=== PATIENT | male | born 1955 | race Caucasian/White ===

== ENCOUNTER 2019-12-08 10:07 | Outpatient (CLI) | payer OTHER, SELFPAY ==
--- NOTE | ~2019-12-08 | US_ITS ---
EXAMINATION: US carotid duplex BI DATE: 12/08/2019 10:58 INDICATION: Carotid stenosis TECHNIQUE: Grayscale, color Doppler, and pulsed Doppler images of the cervical carotid arteries were obtained. The degree of vessel stenosis is placed in one of the following categories: normal, <50%, 5 0-69%, >=70% but less than near-occlusion, near-occlusion, or total occlusion. Note that percent sten osis relative to normal distal artery lumen diameter is indirectly measured from velocity measurement s as described by Yg, et al. Radiology 2003; [id number]:[id number]. Notes: Normal: Peak systolic velocity <125 centimeters/sec and no plaque <50%. Peak systolic velocity <125 ( EDV <40; ICA/CCA PSV ratio <2.0; used these factors only a tandem lesions or low cardiac output or co ntralateral disease) 50-69 %: PSV 125-230 (EDV 40-100; ratio 2-4) >= 70% but less than near occlusion: PSV greater than 230 (EDV > 100; ratio> 4.0) Near Occlusion: PSV that is variable; markedly narrowed lumen Occlusion: Absent flow on color/spectral Doppler and no lumen on castillo scale. COMPARISON: Ultrasound dated 02/05/2012 FINDINGS: RIGHT: The right common carotid artery (CCA) peak systolic velocity (PSV) is 120 cm/s. The right internal ca rotid artery (ICA) PSV is 165 cm/s. The right ICA end-diastolic velocity (EDV) is 44 cm/s. The right ICA/CCA PSV ratio is 1.4. The external carotid artery (ECA) PSV is 98 cm/s. There is antegrade flow i n the right vertebral artery. LEFT: The left CCA PSV is 119 cm/s. The left ICA PSV is 124 cm/s. The left ICA EDV is 41 cm/s. The left ICA /CCA PSV ratio is 1.0. The ECA PSV is 83 cm/s. There is antegrade flow in the left vertebral artery. IMPRESSION: 1. 50-69% stenosis in the right internal carotid artery by sonographic criteria. 2. Less than 50% stenosis in the left internal carotid artery by sonographic criteria. Reviewed, dictated and finalized at location A. IMPRESSION: 1. 50-69% stenosis in the right internal carotid artery by sonographic criteria . 2. Less than 50% stenosis in the left internal carotid artery by sonographic cr iteria.
== END 2019-12-08 10:08 | disposition home or self-care (01) ==
LOC: CHSIMG 10:11
PROVIDERS: PCP Internal Medicine; Visit Provider Internal Medicine
DX: I65.23 Occlusion and stenosis of bilateral carotid arteries (principal)
CPT/HCPCS: 93880

== ENCOUNTER 2020-06-29 10:02 | Outpatient (CLI) | payer OTHER, SELFPAY ==
[2020-06-29 10:58] LABS: SARS-CoV-2 Ag Positive (Negative)
== END 2020-06-29 10:03 | disposition home or self-care (01) ==
LOC: CHSLAB 10:08
PROVIDERS: PCP Internal Medicine; Visit Provider Internal Medicine
DX: U07.1 COVID-19 (principal)
CPT/HCPCS: 87426

== ENCOUNTER 2020-07-20 10:25 | Outpatient (CLI) | payer OTHER, SELFPAY ==
--- NOTE | ~2020-07-20 | CT_ITS ---
EXAMINATION: CT abdomen pelvis wo con DATE: 07/20/2020 10:46 INDICATION: Left flank pain, left lower quadrant and groin pain. History of kidney stones. TECHNIQUE: Computed tomography (CT) of the abdomen and pelvis was performed without intravenous contr ast. Automated exposure control and iterative reconstruction technique were employed. Exam dose: 375 .38 mGy-cm total exam DLP. COMPARISON: 06/16/[address] abdomen pelvis FINDINGS: There is discoid atelectasis or scarring in the right lower lobe. The lung bases are clear of infiltrate or consolidation. Status post sternotomy. Normal heart size. No pericardial or pleural effusion. Probable approximately 11 mm left hepatic cyst. The liver is otherwise unremarkable. No bile duct or pancreatic duct dilatation. The gallbladder appears unremarkable. No pancreatic mass lesion or calcif ication. Normal splenic size. Normal morphology of the adrenal glands. No right renal mass lesion or right urinary tract calculus or hydroureteronephrosis. There is an approximately 7 x 10.6 x 11.8 mm tall calculus (740 Hounsfield units) of the left uretero pelvic junction with moderately severe left hydronephrosis. There is a 5.6 mm lower pole nonobstructing left renal calculus. The urinary bladder, prostate gland and seminal vesicles are unremarkable. There is atherosclerotic calcification of the abdominal aorta, celiac and superior mesenteric and rig ht renal arteries as well as iliac and femoral arteries. No abdominal aortic aneurysm. No intraperitoneal or retroperitoneal or pelvic mass lesion or adenopathy or ascites. Normal appendix. No bowel obstruction, bowel wall thickening, pneumatosis or intraperitoneal free air. There is likely chronic mild loss of height and anterior wedging at L1 and several lower thoracic pan tebral bodies. Diffuse osteopenia. No suspicious osteolytic or osteoblastic lesions are noted. IMPRESSION: 7 x 10.6 x 11.8 mm obstructing left ureteropelvic junction calculus with moderately nathan re left hydronephrosis 5.60 the lower pole nonobstructing left renal calculus 11 mm left hepatic cyst Reviewed, dictated and finalized at Location A. Reviewed, dictated and finalized at location B. ENTERS IMPRESSION: 7 x 10.6 x 11.8 mm obstructing left ureteropelvic junction calculu s with moderately severe left hydronephrosis 5.60 the lower pole nonobstructing left renal calculus 11 mm left hepatic cyst
== END 2020-07-20 10:26 | disposition home or self-care (01) ==
LOC: CHSIMG 10:28
PROVIDERS: PCP Internal Medicine; Visit Provider Internal Medicine
DX: R10.9 Unspecified abdominal pain (principal); R31.9 Hematuria, unspecified
CPT/HCPCS: 74176

== ENCOUNTER 2020-07-25 08:26 | Outpatient (CLI) | payer OTHER, SELFPAY ==
--- NOTE | 2020-07-25 08:28 | ECG_ITS ---
Measurements Intervals [place] Rate: 78 P: 41 MN: 138 QRS: 26 QRSD: 93 T: 20 QT: 344 QTc: 393 Interpretive Statements SINUS RHYTHM POSSIBLE LEFT ATRIAL ENLARGEMENT INCOMPLETE RIGHT BUNDLE BRANCH BLOCK DELAYED PRECORDIAL R/S TRANSITION BORDERLINE ECG Electronically Signed On 07-25-2020 8:44:08 MILL MACHINIST by Dilshad Mars D.O.
[2020-07-25 09:05] LABS: INR 0.9; Prothrombin Time 12.9 Seconds (11.1-14.7)
[2020-07-25 09:06] LABS: Partial Thromboplastin Time 26.2 SECONDS (22.3-36.8)
== END 2020-07-25 08:27 | disposition home or self-care (01) ==
LOC: ANHSURGERY 08:28
PROVIDERS: Urology; PCP Internal Medicine; Visit Provider Urology
DX: Z01.818 Encounter for other preprocedural examination (principal); E78.00 Pure hypercholesterolemia, unspecified; N20.0 Calculus of kidney
CPT/HCPCS: 36415; 85610; 85730; 87086; 93005

== ENCOUNTER 2020-07-28 02:42 | Day surgery (SDC) | payer OTHER, SELFPAY ==
[2020-07-20 15:40] VITALS: BMI 27.7
--- NOTE | 2020-07-24 07:59 | PM.HPGS ---
History of Present Illness History of Present Illness Consent: Risks, benefits, and alternatives have been discussed and questions answered. Patient agrees to proceed with procedure. Chief complaint: Left Kidney Stone Narrative: Timmy Ledbetter is a 64 year old male who recent presented to the emergency room in [facility] with left flank pain. Imaging revealed a calcified left renal pelvic/ proximal ureteral stone. Was initially scheduled for ESWL but that had to be canceled because he had a ongoing anticoagulation therapy. Now presents for definitive stone including cystoscopy with left stent placement and left ESWL. Review of Systems Cardiovascular: Cardiovascular: Denies chest pain, Denies lightheadedness, Denies palpitations and Denies dyspnea Respiratory: Respiratory: Denies dyspnea Gastrointestinal: Gastrointestinal: Denies diarrhea, Denies nausea and Denies vomiting Genitourinary: Genitourinary: Denies hematuria and Denies dysuria Endocrine: Endocrine: Denies palpitations [facility] Social History Social History Smoking status: Never smoker Spiritual care concerns: No Meds Home Medications and Allergies Home Medications Medication Instructions Recorded Confirmed Type allopurinol 100 mg PO DAILY 07/20/20 07/20/20 History aspirin [Adult Low Dose Aspirin] 81 mg PO DAILY 07/20/20 07/20/20 History ezetimibe 10 mg PO DAILY 07/20/20 07/20/20 History folic acid 1 mg PO DAILY 07/20/20 07/20/20 History lisinopril 5 mg PO DAILY 07/20/20 07/20/20 History metoprolol tartrate 50 mg PO DAILY 07/20/20 07/20/20 History omeprazole 40 mg PO DAILY 07/20/20 07/20/20 History ticagrelor [Brilinta] 90 mg PO BID 07/20/20 07/20/20 History Allergies Allergy/AdvReac Type Severity Reaction Status Date / Time No Known Allergies Allergy Unverified 07/20/20 14:56 Exam Const: General: no acute distress Resp: Effort & Inspection: normal respiratory effort GI: Inspection: non-distended GI Palp: No abdominal tenderness and No Guarding due to palpation present (GI) Auscultation: normal bowel sounds Assessment and Plan Assessment and plan (1) Left renal stone: Code(s): N20.0 - Calculus of kidney Status: Acute Assessment and Plan: Left ESWL, possible cystoscopy with left ureteral stent placement
--- NOTE | 2020-07-24 12:58 | PC.NURSE ---
PT STATES NO CHANGE IN HEALTH HX SINCE LAST INTERVIEW 07/20/20. GIVEN NEW DATE AND TIME
--- NOTE | 2020-07-27 07:27 | PM.HPGS ---
History of Present Illness History of Present Illness Consent: Risks, benefits, and alternatives have been discussed and questions answered. Patient agrees to proceed with procedure. Chief complaint: Left Kidney Stone Narrative: Timmy Ledbetter is a 64 year old male Recently underwent evaluation for hematuria. CT scan of the abdomen and pelvis revealed multiple renal and ureteral calculi. Specifically he has multiple small stones right kidney, an obstructing 6-7 mm right mid ureteral stone and a 5 mm left renal pelvic stone. Review of Systems Cardiovascular: Cardiovascular: Denies chest pain, Denies lightheadedness, Denies palpitations and Denies dyspnea Respiratory: Respiratory: Denies dyspnea Gastrointestinal: Gastrointestinal: Denies diarrhea, Denies nausea and Denies vomiting Genitourinary: Genitourinary: Denies hematuria and Denies dysuria Endocrine: Endocrine: Denies palpitations [facility] Social History Social History Smoking status: Never smoker Spiritual care concerns: No Meds Home Medications and Allergies Home Medications Medication Instructions Recorded Confirmed Type allopurinol 100 mg PO DAILY 07/20/20 07/24/20 History aspirin [Adult Low Dose Aspirin] 81 mg PO DAILY 07/20/20 07/24/20 History ezetimibe 10 mg PO DAILY 07/20/20 07/24/20 History folic acid 1 mg PO DAILY 07/20/20 07/24/20 History lisinopril 5 mg PO DAILY 07/20/20 07/24/20 History metoprolol tartrate 50 mg PO DAILY 07/20/20 07/24/20 History omeprazole 40 mg PO DAILY 07/20/20 07/24/20 History ticagrelor [Brilinta] 90 mg PO BID 07/20/20 07/24/20 History cyanocobalamin (vitamin B-12) 100 mcg PO DAILY 07/24/20 07/24/20 History hydrocodone-acetaminophen 0.5 tablet PO Q6H PRN 07/24/20 07/24/20 History thiamine HCl (vitamin B1) 100 mg PO DAILY 07/24/20 07/24/20 History Allergies Allergy/AdvReac Type Severity Reaction Status Date / Time No Known Allergies Allergy Unverified 07/24/20 12:56 Exam Const: General: no acute distress Resp: Effort & Inspection: normal respiratory effort GI: Inspection: non-distended GI Palp: No abdominal tenderness and No Guarding due to palpation present (GI) Auscultation: normal bowel sounds Assessment and Plan Assessment and plan (1) Bilateral renal stones: Code(s): N20.0 - Calculus of kidney Status: Acute (2) Right ureteral stone: Code(s): N20.1 - Calculus of ureter Status: Acute Assessment and Plan: Cystoscopy, right ureteral stent placement and right ESWL. Left ureteroscopy with laser lithotripsy and stone extraction, possible left ureteral stent placement
--- NOTE | ~2020-07-28 | XR_ITS ---
EXAMINATION: XR abdomen/kub 1V INDICATION: Left flank pain TECHNIQUE: Supine views of the abdomen were obtained on 2 radiographs. COMPARISON: CT, 07/20/2020 FINDINGS: A 12 mm stone projects at the left ureteropelvic junction. There is a 7 mm stone of the lef t kidney lower pole. No stones are identified in the right kidney, the expected location of the right ureter, or within the bladder. Pelvic phleboliths are noted. Changes in the left pelvis are likely r elated to inguinal hernia repair. There is mild osteoarthritis of the hips. The bowel gas pattern is normal. IMPRESSION: 1. Stones at the left ureteropelvic junction and in the left kidney lower pole. Reviewed, dictated and finalized at location A. H ASSEMBLY INSPECTOR
[2020-07-28 06:48] VITALS: BP 147/94; PULSE 91; RESP 16; TEMP 36.8; O2SAT 97
[2020-07-28] MEDS: LACTATED RINGERS 1,000 ML 30 ML IV CONT ×2 (07:41→09:24)
--- NOTE | 2020-07-28 07:59 | WPDANESEPPF ---
Anes - Initial Pre Proc Eval Procedure: Operation Date: 07/21/20 08:30 Proposed Procedures p Left Extracorporeal Shock Wave Lithotripsy - Az Tanner MD s Cystoscopy, Left Stent Placement - Az Tanner MD Operation Date: 07/28/20 08:30 Proposed Procedures p Left Extracorporeal Shock Wave Lithotripsy,Cystoscopy, Left Stent Placement - Ori Umanzor MD Date/Time: 07/28/20 07:59 Surgeon: Ori Umanzor MD Pre Op Diagnosis: Left Kidney Stone Patient Data Age: 64 Gender: M Height: 6 ft 1 in Weight: 96 kg Last Vital Signs Temp 36.8 C 07/28/20 06:48 Pulse 91 07/28/20 06:48 Resp 16 07/28/20 06:48 BP 147/94 H 07/28/20 06:48 Pulse Ox 97 07/28/20 06:48 Allergies Allergy/AdvReac Type Severity Reaction Status Date / Time No Known Allergies Allergy Unverified 07/24/20 12:56 Home Medications Medication Instructions Recorded Confirmed Type allopurinol 100 mg PO DAILY 07/20/20 07/28/20 History aspirin [Adult Low Dose Aspirin] 81 mg PO DAILY 07/20/20 07/28/20 History ezetimibe 10 mg PO DAILY 07/20/20 07/28/20 History folic acid 1 mg PO DAILY 07/20/20 07/28/20 History lisinopril 5 mg PO DAILY 07/20/20 07/28/20 History metoprolol tartrate 50 mg PO DAILY 07/20/20 07/28/20 History omeprazole 40 mg PO DAILY 07/20/20 07/28/20 History ticagrelor [Brilinta] 90 mg PO BID 07/20/20 07/28/20 History cyanocobalamin (vitamin B-12) 100 mcg PO DAILY 07/24/20 07/28/20 History hydrocodone-acetaminophen 0.5 tablet PO Q6H PRN 07/24/20 07/24/20 History thiamine HCl (vitamin B1) 100 mg PO DAILY 07/24/20 07/28/20 History Patient hx anesthesia problems: none Family hx anesthesia problems: none PMFSH Past Medical History Medical History (Updated 07/28/20 @ 07:59 by [place] Gaspar MD) CAD (coronary artery disease) Surgical History Surgical History (Updated 07/28/20 @ 07:59 by Montana Gaspar MD) History of coronary artery stent placement Hx of CABG Social History Social History Smoking status: Never smoker Living arrangements: with family Spiritual care concerns: No Anes - Eval Final PreProcedure Day of Procedure 07/28/20 07:59 Patient weight: overweight Heart: regular rate and rhythm Lungs: clear to auscultation Airway: Mallampati scale class II and special considerations poor opening Neurological: alert and oriented Last oral intake: >/= 8 hours ASA classification: III Emergent: no Anesthetic plan: proceed Anesthesia type and monitoring: general LMA and standard monitoring Informed Consent: The patient's anesthetic plan and its attendant risks and benefits were discussed with the patient/family/POA. Questions were solicited and answers provided to the satisfaction of the patient/family/POA.
--- NOTE | 2020-07-28 08:26 | WPDHPUPDATE1 ---
History and Physical Update Update Date/Time: 07/28/20 08:26 History and Physical has been reviewed, including an updated exam of the patient. There are NO changes in the patient's condition. Risks, benefits, and alternatives have been discussed and questions answered. Patient agrees to proceed with procedure.
[2020-07-28] MEDS: ceFAZolin 2 GM/D5W 50 ML 2 GM/50 ML BAG IVPB (08:41)
[2020-07-28 09:24] VITALS: BP 118/79; PULSE 71; RESP 14; TEMP 36.7; O2SAT 98
--- NOTE | 2020-07-28 09:24 | PM.PROC ---
Procedure Note - Detailed Date of procedure: 07/28/20 Pre-op diagnosis: Left Kidney Stone Post-op diagnosis: same Procedure performed: Left ESWL Description of procedure: Prior to procedure we discussed left ureteral stent placement. Due to prior adverse experience with stent and marginal size of this stone, he opted against stent placement. The patient was brought to the operative suite where he was placed in the supine position on the Dornier lithotripsy table. The focal point of the lithotripter was placed at a 6x9mm left UPJ calculus. A total of 2500 shocks were delivered at a power setting of 4. We did not treat the smaller stone in his left lower pole. There appeared to be good fragmentation of the stone. The patient tolerated the procedure well and was taken to the recovery room in good condition. Anesthesia: GLMA Surgeon: Ori Umanzor MD Estimated blood loss (mL): 0 Drains: No Packing: No Pathology: none sent Complications: No immediate complications Condition: stable Disposition: PACU
[2020-07-28 09:40] VITALS: BP 149/96; PULSE 73; RESP 14; O2SAT 100
[2020-07-28 09:50] VITALS: BP 143/97; PULSE 76; RESP 14; O2SAT 99
[2020-07-28 09:55] VITALS: BP 165/104; PULSE 70; RESP 14
[2020-07-28 10:30] VITALS: BP 134/96; PULSE 70; RESP 14
== END 2020-07-28 11:04 | disposition home or self-care (01) ==
PROVIDERS: PCP Internal Medicine; Visit Provider Urology
PROC: (CPT 50590; principal; 2020-07-28 08:30)
DX: N20.2 Calculus of kidney with calculus of ureter (principal); Z79.82 Long term (current) use of aspirin
CPT/HCPCS: 50590; 36415; 74018; 85610; 85730; 87086; 93005; A9270; J0690; J2250; J2405; J2704; J3010; J7120

== ENCOUNTER 2020-08-03 11:43 | Outpatient (CLI) | payer OTHER, SELFPAY ==
--- NOTE | ~2020-08-03 | XR_ITS ---
EXAMINATION: XR abdomen/kub 1V INDICATION: Calculus of ureter TECHNIQUE: Supine views of the abdomen were obtained on 2 radiographs. COMPARISON: 07/28/2020 FINDINGS: A previously described stone at the left ureteropelvic junction is no longer identified. Th ere are questionable stone fragments in the distal left ureter. There appears to be interval lithotri psy of the previously described left kidney stone with small stone fragments of the lower pole. The b owel gas pattern is normal. The lung bases are clear. Again noted are changes in the left pelvis like ly related to inguinal hernia repair. There is mild osteoarthritis of the hips. IMPRESSION: 1. Interval treatment of the previously described left-sided kidney stones with possible stone fragme nts in the distal left ureter and in the left kidney lower pole. Reviewed, dictated and finalized at location A. CREW MEMBER IMPRESSION: 1. Interval treatment of the previously described left-sided kidney stones with possible stone fragments in the distal left ureter and in the left kidney lowe r pole.
== END 2020-08-03 11:44 | disposition home or self-care (01) ==
PROVIDERS: PCP Internal Medicine; Visit Provider Urology
DX: N20.1 Calculus of ureter (principal)
CPT/HCPCS: 74018

== ENCOUNTER 2020-08-04 08:08 | Outpatient (CLI) | payer OTHER, SELFPAY ==
--- NOTE | ~2020-08-04 | XR_ITS ---
EXAMINATION: XR abdomen/kub 1V EXAM DATE: 08/04/2020 08:22 INDICATION: Calculus of ureter, F/U after lithotripsy on the left. TECHNIQUE: Frontal projection of the upper abdomen, frontal projection lower abdomen/pelvis for inter pretation. Comparison is made to prior examination from 08/03/2020. FINDINGS: There is identification of one of the previously seen possible distal left ureteral stone f ragments, indicated. This measures about 3 or 4 mm. Can't identify any definite calcifications over r enal contours. Pelvic surgical clip. Probable left inguinal hernia repair. Mild to moderate symmetric bilateral hip primary osteoarthritis. Expected amount of colonic stool and gas. Mild to moderate tho racolumbar spondylosis. IMPRESSION: 1. Calcification, possible distal left ureteral stone indicated. Reviewed, dictated and finalized at location A. ILIZER SUPERVISOR
== END 2020-08-04 08:09 | disposition home or self-care (01) ==
PROVIDERS: PCP Internal Medicine; Visit Provider Urology
DX: N20.1 Calculus of ureter (principal)
CPT/HCPCS: 74018

== ENCOUNTER 2020-09-27 10:01 | Outpatient (CLI) | payer OTHER, SELFPAY ==
--- NOTE | ~2020-09-27 | XR_ITS ---
EXAMINATION: XR abdomen/kub 1V EXAM DATE: 09/27/2020 10:25 INDICATION: Left flank pain. History of kidney stones. TECHNIQUE: Frontal projection of the upper abdomen, frontal projection lower abdomen/pelvis for inter pretation. Comparison is made to prior examination from 08/04/2020. FINDINGS: There is expected amount of colonic stool and gas. No small bowel dilation, nonobstructiv e bowel gas pattern. Right pelvic phlebolith. There are no suspicious calcifications identified. T here is no organomegaly suspected. There are mild bony degenerative changes. Several left inguinal s urgical clips. IMPRESSION: No suspicious calcifications identified. Reviewed, dictated and finalized at location A.
== END 2020-09-27 10:02 | disposition home or self-care (01) ==
PROVIDERS: PCP Internal Medicine; Visit Provider Urology
DX: N20.0 Calculus of kidney (principal)
CPT/HCPCS: 74018

== ENCOUNTER 2021-03-13 07:43 | Outpatient (CLI) | payer MEDICARE, SELFPAY ==
--- NOTE | ~2021-03-13 | US_ITS ---
EXAMINATION: US carotid duplex BI EXAM DATE: 03/13/2021 08:19 INDICATION: Carotid Stenosis . TECHNIQUE: Grayscale, color and pulsed Doppler images of the cervical carotid arteries were obtained . The degree of vessel stenosis is placed in one of the following categories: normal, <50% stenosis, 50-69% stenosis, >=70% stenosis but less than near-occlusion, near-occlusion, or occlusion. Note that percent stenosis relative to normal distal artery lumen diameter is indirectly measured from velocit y measurements as described by Yg, et al. Radiology 2003; [id number]:[id number]. Comparison is made to prior examination from 12/08/2019. FINDINGS: RIGHT SIDE: Right common carotid artery peak systolic velocity (PSV in cm/s): 112 Right bulb/internal carotid artery peak systolic velocity (PSV in cm/s): 155 Right internal carotid artery end diastolic velocity (EDV in cm/s): 148 Right ICA/CCA peak systolic ratio: 1.4 Right external carotid artery peak systolic velocity (PSV in cm/s): 122 Right vertebral artery antegrade flow: yes There is moderate right carotid bulb arterial sclerosis with mildly elevated velocity corresponding t o 50-69% stenosis. LEFT SIDE: Left common carotid artery peak systolic velocity (PSV in cm/s): 147 Left bulb/internal carotid artery peak systolic velocity (PSV in cm/s): 201 Left internal carotid artery end diastolic velocity (EDV in cm/s): 58 Left ICA/CCA peak systolic ratio: 1.4 Left external carotid artery peak systolic velocity (PSV in cm/s): 142 Left vertebral artery antegrade flow: yes There is mild to moderate amount of left carotid bulb arterial sclerosis with elevated ICA velocity, visually less than 50% stenosis. IMPRESSION: 1. 50-69% stenosis right internal carotid artery. 2. Less than 50 percent stenosis in the left internal carotid artery. Reviewed, dictated and finalized at location D.
== END 2021-03-13 07:44 | disposition home or self-care (01) ==
LOC: CHSIMG 07:49
PROVIDERS: PCP Internal Medicine; Visit Provider Internal Medicine
DX: I65.23 Occlusion and stenosis of bilateral carotid arteries (principal)
CPT/HCPCS: 93880

== ENCOUNTER 2021-04-03 14:08 | Outpatient (CLI) | payer MEDICARE, SELFPAY ==
[2021-04-03 14:25] LABS: Basophils Absolute Auto 0.04 K/mm3 (0.00-0.10); Basophils Percent Auto 0.5 % (0.0-1.0); Eosinophils Absolute Auto 0.09 K/mm3 (0.02-0.50); Eosinophils Percent Auto 1.1 % (1.0-6.0); Hematocrit 44.6 % (37.0-46.0); Hemoglobin 15.1 g/dL (12.4-15.3); Immature Granulocyte Absolute 0.02 K/mm3 (0.00-0.00); Immature Granulocyte Percent A 0.2 % (0.0-0.0); Lymphocytes Absolute Auto 1.73 K/mm3 (1.10-4.50); Lymphocytes Percent Auto 21.5 % (18.0-42.0); Mean Corpuscular HGB Conc 33.9 g/dL (32.0-36.0); Mean Corpuscular Hemoglobin 29.5 pg (27.0-31.0); Mean Corpuscular Volume 87.3 fL (78.0-102.0); Mean Platelet Volume 9.4 fl (8.7-11.0); Monocytes Absolute Auto 0.64 K/mm3 (0.10-0.90); Monocytes Percent Auto 7.9 % (2.0-11.0); Neutrophils Absolute Auto 5.5 K/mm3 (1.7-7.2); Neutrophils Percent Auto 68.8 % (50.0-70.0); Platelet Count Result 267 K/mm3 (150-420); Red Blood Count 5.11 M/mm3 (4.70-6.10); Red Cell Distribution Width 12.8 % (11.6-14.4); White Blood Count 8.1 K/mm3 (4.8-10.8)
[2021-04-03 15:03] LABS: Alanine Aminotransferase 45 U/L (16-63); Albumin Level 4.2 g/dL (3.4-5.0); Alkaline Phosphatase 75 U/L (46-116); Anion Gap 10 mmol/L (8-16); Aspartate Amino Transferase 26 U/L (15-37); Bilirubin,Total 0.3 mg/dL (0.00-1.00); Blood Urea Nitrogen 23 mg/dL (7-18); Calcium 9.1 mg/dL (8.5-10.1); Carbon Dioxide 26 mmol/L (21-32); Chloride 103 mmol/L (98-108); Creatine Kinase 268 U/L (39-308); Estimated Glomerular Filt Rate > 60; Glucose 95 mg/dL (70-99); NT Pro B Type Natriuretic Pept 65 pg/mL (0-125); Osmolality Calculated 291 mOsm/kg (285-295); Potassium 4.1 mmol/L (3.5-5.1); Sodium 139 mmol/L (136-145); Total Protein 7.5 g/dL (6.4-8.2)
== END 2021-04-03 14:09 | disposition home or self-care (01) ==
LOC: CHSLAB 14:12
PROVIDERS: PCP Internal Medicine; Visit Provider Internal Medicine
DX: I25.10 Atherosclerotic heart disease of native coronary artery without angina pectoris (principal); R42 Dizziness and giddiness; R06.00 Dyspnea, unspecified
CPT/HCPCS: 36415; 80053; 82550; 82553; 83880; 84484; 85025

== ENCOUNTER → 2021-04-27 08:36 | Outpatient (CLI) | payer MEDICARE, SELFPAY ==
--- NOTE | ~2021-04-27 | CT_ITS ---
EXAMINATION: CT abdomen pelvis wo con DATE: 04/27/2021 08:58 INDICATION: Kidney calculus. Patient states he passed a stone. Hypertension. TECHNIQUE: Computed tomography (CT) of the abdomen and pelvis was performed without intravenous contr ast. Automated exposure control and iterative reconstruction technique were employed. Exam dose: 786 .64 mGy-cm total exam DLP. COMPARISON: 04/27/2021 KUB 09/27/2020 KUB 07/20/2020 CT abdomen pelvis noncontrast examination FINDINGS: The lung bases are clear of infiltrate or consolidation. Status post sternotomy. Normal heart size. No pericardial or pleural effusion. Stable left hepatic 11 mm cyst. The liver is otherwise unremarkable. The gallbladder appears normal. No bile duct or pancreatic duct dilatation. No pancreatic mass lesion or calcification. Normal spleni c size. Normal morphology of the adrenal glands. Nonobstructing 2.5 mm, 5.6 mm and 4 mm lower pole left renal calculi. No right renal calculus. No left or right ureteral calculus or hydroureteronephrosis. There is atherosclerotic calcification but normal caliber of the abdominal aorta. There is prominent calcification at the origin of the right renal artery. Calcification of the iliac and femoral arterie s. No intraperitoneal or retroperitoneal or pelvic mass lesion or adenopathy or ascites. Normal appendix. Mild colonic diverticulosis; no CT evidence of diverticulitis. No bowel obstruction, bowel wall thick ening, pneumatosis or intraperitoneal free air. Chronic mild compression fracture deformity of L1. IMPRESSION: Nonobstructing left nephrolithiasis No ureteral calculus or hydroureteronephrosis Reviewed, dictated and finalized at Location A. Reviewed, dictated and finalized at location A.
--- NOTE | ~2021-04-27 | XR_ITS ---
EXAMINATION: XR abdomen/kub 1V DATE: 04/27/2021 08:58 INDICATION: Calculus of kidney. TECHNIQUE: A supine view of the abdomen on 2 radiographs was obtained. COMPARISON: CT abdomen and pelvis 04/27/2021 FINDINGS: There are no dilated loops of bowel. The kidneys are obscured by bowel. There are phlebolit hs in right pelvis. Surgical clips overlie the pelvis. Median sternotomy wires and mediastinal surgic al clips are seen, likely from prior coronary artery bypass grafting. IMPRESSION: 1. No visible urolithiasis. Reviewed, dictated and finalized at location A. IMPRESSION: 1. No visible urolithiasis.
== END ==
PROVIDERS: PCP Internal Medicine; Visit Provider Nurse Practitioner Adult Health
DX: N20.0 Calculus of kidney (principal)
CPT/HCPCS: 74018; 74176

== ENCOUNTER 2021-09-03 13:58 | Outpatient (CLI) | payer MEDICARE, SELFPAY ==
--- NOTE | ~2021-09-03 | XR_ITS ---
EXAMINATION: XR chest 2V 09/03/2021 14:24 INDICATION: Chest pain and discomfort PROCEDURE: Two-view chest COMPARISON: 03/07/2015 FINDINGS: The lungs are clear. The cardiomediastinal silhouette is within normal limits. There are no pleural effusions. There is no pneumothorax suspected. Status post median sternotomy for CABG. IMPRESSION: 1: NO ACUTE CARDIOPULMONARY DISEASE. Reviewed, dictated and finalized at location B. IAC CATH TECHNICIAN
[2021-09-03 14:20] LABS: Basophils Absolute Auto 0.03 K/mm3 (0.00-0.10); Basophils Percent Auto 0.4 % (0.0-1.0); Eosinophils Percent Auto 1.4 % (1.0-6.0); Hematocrit 44.4 % (37.0-46.0); Hemoglobin 14.7 g/dL (12.4-15.3); Immature Granulocyte Absolute 0.02 K/mm3 (0.00-0.00); Immature Granulocyte Percent A 0.3 % (0.0-0.0); Lymphocytes Percent Auto 21.7 % (18.0-42.0); Mean Corpuscular HGB Conc 33.1 g/dL (32.0-36.0); Mean Corpuscular Hemoglobin 28.8 pg (27.0-31.0); Mean Corpuscular Volume 87.1 fL (78.0-102.0); Mean Platelet Volume 10.2 fl (8.7-11.0); Monocytes Absolute Auto 0.63 K/mm3 (0.10-0.90); Monocytes Percent Auto 8.5 % (2.0-11.0); Neutrophils Percent Auto 67.7 % (50.0-70.0); Platelet Count Result 239 K/mm3 (150-420); Red Cell Distribution Width 13.2 % (11.6-14.4); White Blood Count 7.4 K/mm3 (4.8-10.8)
[2021-09-03 14:47] LABS: Alanine Aminotransferase 30 U/L (16-63); Albumin Level 3.9 g/dL (3.4-5.0); Alkaline Phosphatase 69 U/L (46-116); Anion Gap 8 mmol/L (8-16); Aspartate Amino Transferase 18 U/L (15-37); Bilirubin,Total 0.4 mg/dL (0.00-1.00); Blood Urea Nitrogen 22 mg/dL (7-18); Calcium 9.1 mg/dL (8.5-10.1); Carbon Dioxide 27 mmol/L (21-32); Chloride 102 mmol/L (98-108); Creatine Kinase 134 U/L (39-308); Estimated Glomerular Filt Rate > 60; Glucose 93 mg/dL (70-99); Osmolality Calculated 287 mOsm/kg (285-295); Potassium 4.1 mmol/L (3.5-5.1); Sodium 137 mmol/L (136-145); Total Protein 7.4 g/dL (6.4-8.2)
[2021-09-03 15:27] LABS: Erythrocyte Sedimentation Rate 7 mm/hr (0-20)
== END 2021-09-03 13:59 | disposition home or self-care (01) ==
LOC: CHSLAB 14:02
PROVIDERS: PCP Internal Medicine; Visit Provider Internal Medicine
DX: R07.9 Chest pain, unspecified (principal)
CPT/HCPCS: 36415; 71046; 80053; 82550; 82553; 84484; 85025; 85652

== ENCOUNTER 2021-12-13 00:52 | Day surgery (SDC) | payer MEDICARE, SELFPAY ==
[2021-11-21 10:19] VITALS: BMI 28.3
--- NOTE | 2021-12-06 12:25 | PC.NURSE ---
message left for patient regarding date, times and plavix.
[2021-12-13 07:40] VITALS: BP 133/94; PULSE 72; RESP 18; TEMP 36.6; O2SAT 99
[2021-12-13] MEDS: LACTATED RINGERS 1,000 ML 150 ML IV CONT (07:42)
--- NOTE | 2021-12-13 08:19 | PM.IMHP ---
H&P: HPI History of Present Illness Date/Time: 12/13/21 08:19 Chief Complaint: epigastric pain, reflux, history of colon polyps Narrative: this is a 66-year-old man who presents for EGD and colonoscopy. His last colonoscopy was 5 years ago and polyps were removed at that time. He denies any family history of colon cancer and denies any melena or hematochezia. He also has a longstanding history of acid reflux. He recently had some epigastric pain but it turned out this was most likely due to a stent in his heart being occluded. This was ballooned back open several months ago. He still takes a PPI daily. Review of Systems Review of Systems: All systems reviewed & are unremarkable except as noted in HPI and below Constitutional: Constitutional: Denies chills, Denies fever(s), Denies headache(s) and Denies weight loss Eyes: Eyes: Denies change in vision ENT: Denies dizziness, Denies headache(s), Denies neck mass and Denies throat swelling Cardiovascular: Cardiovascular: Denies chest pain, Denies lightheadedness and Denies dyspnea Respiratory: Respiratory: Denies cough, Denies dyspnea and Denies wheezing Gastrointestinal: Gastrointestinal: Denies abdominal pain, Denies change in bowel habits, Reports heartburn, Denies nausea and Denies vomiting Genitourinary: Genitourinary: Denies hematuria and Denies dysuria Musculoskeletal: Musculoskeletal: Reports as per HPI Integumentary/Breasts: Skin/Breast: Reports as per HPI Neurologic: Denies dizziness and Denies headache(s) Allergic/Immunologic: Allergic/Immunologic: Denies throat swelling and Denies wheezing [facility] Past Medical History Medical History CAD (coronary artery disease) Surgical History Surgical History History of coronary artery stent placement Hx of CABG Family History Family History Father Coronary artery disease Sibling Hyperlipidemia Sibling Hypertension Grandparent Hypertension Cancer Social History Social History Smoking status: Never smoker Alcohol intake: current Drinks per week: 5 Substance use: never Substance use type: does not use Living arrangements: with family Spiritual care concerns: No Meds Home Medications and Allergies Home Medications Medication Instructions Recorded Confirmed Type allopurinol 100 mg tablet 100 mg PO DAILY 07/20/20 11/21/21 History aspirin 81 mg tablet 81 mg PO DAILY 07/20/20 11/21/21 History metoprolol tartrate 50 mg tablet 50 mg PO DAILY 07/20/20 11/21/21 History cyanocobalamin (vitamin B-12) 100 100 mcg PO DAILY 07/24/20 11/21/21 History mcg tablet alirocumab 75 mg/mL subcutaneous 75 mg subcut [id number] 10/02/21 11/21/21 History syringe lisinopril 30 mg tablet 30 mg PO DAILY 10/02/21 11/21/21 History nitroglycerin 0.4 mg sublingual 0.4 mg sublingual Q5M PRN Chest 10/02/21 11/21/21 History tablet Pain pantoprazole 40 mg tablet,delayed 40 mg PO BID 10/02/21 11/21/21 History release amlodipine 10 mg tablet 10 mg PO DAILY 11/21/21 11/21/21 History clopidogrel 75 mg tablet 75 mg PO DAILY 11/21/21 11/21/21 History folic acid 1 mg tablet 1 mg PO DAILY 11/21/21 11/21/21 History Allergies Allergy/AdvReac Type Severity Reaction Status Date / Time isosorbide Allergy Severe dizziness, Verified 12/13/21 07:38 giddiness [id number] Reductase Allergy Intermediate muscle Verified 12/13/21 07:38 Inhibitor weakness Vital Signs Vital Signs - 24 hr 12/13/21 07:40 Temperature 36.6 C Pulse Rate 72 Respiratory Rate 18 Blood Pressure 133/94 H Pulse Oximetry 99 Oxygen Delivery Room Air Exam Const: General: no acute distress and alert Orientation/consciousness: patient oriented x3 HENMT: Head: normocephalic and atraumatic
--- NOTE | 2021-12-13 08:28 | WPDANESEPPF ---
Anes - Initial Pre Proc Eval Procedure: Operation Date: 12/13/21 08:30 Proposed Procedures p Esophagogastroduodenoscopy & Screening Colonoscopy - Adam Coppola DO Date/Time: 12/13/21 08:28 Surgeon: Adam Coppola DO Pre Op Diagnosis: epigastric pain, hx of polyps Patient Data Age: 66 Gender: M Height: 1.85 m Weight: 95.4 kg Last Vital Signs Temp 97.8 F 12/13/21 07:40 Pulse 72 12/13/21 07:40 Resp 18 12/13/21 07:40 BP 133/94 H 12/13/21 07:40 Pulse Ox 99 12/13/21 07:40 O2 Del Method Room Air 12/13/21 07:40 Allergies Allergy/AdvReac Type Severity Reaction Status Date / Time isosorbide Allergy Severe dizziness, Verified 12/13/21 07:38 giddiness [id number] Reductase Allergy Intermediate muscle Verified 12/13/21 07:38 Inhibitor weakness Home Medications Medication Instructions Recorded Confirmed Type allopurinol 100 mg tablet 100 mg PO DAILY 07/20/20 11/21/21 History aspirin 81 mg tablet 81 mg PO DAILY 07/20/20 11/21/21 History metoprolol tartrate 50 mg tablet 50 mg PO DAILY 07/20/20 11/21/21 History cyanocobalamin (vitamin B-12) 100 100 mcg PO DAILY 07/24/20 11/21/21 History mcg tablet alirocumab 75 mg/mL subcutaneous 75 mg subcut [id number] 10/02/21 11/21/21 History syringe lisinopril 30 mg tablet 30 mg PO DAILY 10/02/21 11/21/21 History nitroglycerin 0.4 mg sublingual 0.4 mg sublingual Q5M PRN Chest 10/02/21 11/21/21 History tablet Pain pantoprazole 40 mg tablet,delayed 40 mg PO BID 10/02/21 11/21/21 History release amlodipine 10 mg tablet 10 mg PO DAILY 11/21/21 11/21/21 History clopidogrel 75 mg tablet 75 mg PO DAILY 11/21/21 11/21/21 History folic acid 1 mg tablet 1 mg PO DAILY 11/21/21 11/21/21 History Patient hx anesthesia problems: none Family hx anesthesia problems: none Results Review: All pre-operative results and documents have been reviewed as part of the pre-operative evaluation. [facility] Past Medical History Medical History CAD (coronary artery disease) Surgical History Surgical History History of coronary artery stent placement Hx of CABG Family History Family History Father Coronary artery disease Sibling Hyperlipidemia Sibling Hypertension Grandparent Hypertension Cancer Social History Social History Smoking status: Never smoker Alcohol intake: current Drinks per week: 5 Substance use: never Substance use type: does not use Living arrangements: with family Spiritual care concerns: No Anes - Eval Final PreProcedure Day of Procedure 12/13/21 08:28 Patient weight: overweight Heart: regular rate and rhythm Lungs: clear to auscultation Airway: Mallampati scale class II Neurological: alert and oriented Last oral intake: >/= 8 hours ASA classification: III Emergent: no Anesthetic plan: proceed Anesthesia type and monitoring: general GIVS and standard monitoring Results Review: All pre-operative results and documents have been reviewed as part of the pre-operative evaluation. Informed Consent: The patient's anesthetic plan and its attendant risks and benefits were discussed with the patient/family/POA. Questions were solicited and answers provided to the satisfaction of the patient/family/POA.
[2021-12-13] MEDS: BENZOCAINE (*SP) 60 ML SPRAY CAN (HURRICAINE) 1 SPRAY MUCOUS MEM (08:34)
--- NOTE | 2021-12-13 09:03 | SUR.OPER ---
EGD START 836, END 841 COLONOSCOPY START 847, END 899
[2021-12-13 09:04] VITALS: BP 113/76; PULSE 71; RESP 23; O2SAT 97
[2021-12-13 09:14] VITALS: BP 118/82; PULSE 62; RESP 21; O2SAT 97
[2021-12-13 09:24] VITALS: BP 123/90; PULSE 58; RESP 19; O2SAT 100
== END 2021-12-13 09:33 | disposition home or self-care (01) ==
PROVIDERS: PCP Internal Medicine; Visit Provider Surgery
PROC: 0DJ08ZZ Inspection of Upper Intestinal Tract, Via Natural or Artificial Opening Endoscopic (ICD-10-PCS; CPT 43235; principal; 2021-12-13 08:30)
DX: Z12.11 Encounter for screening for malignant neoplasm of colon (principal); Z86.010 Personal history of colon polyps; K31.7 Polyp of stomach and duodenum; K21.9 Gastro-esophageal reflux disease without esophagitis; I25.10 Atherosclerotic heart disease of native coronary artery without angina pectoris; Z79.82 Long term (current) use of aspirin; Z79.02 Long term (current) use of antithrombotics/antiplatelets; Z95.5 Presence of coronary angioplasty implant and graft; Z95.1 Presence of aortocoronary bypass graft
CPT/HCPCS: 43239; G0105; 88305; J2704; J7120

== ENCOUNTER 2022-10-07 10:20 | Outpatient (CLI) | payer MEDICARE, SELFPAY ==
--- NOTE | ~2022-10-07 | US_ITS ---
EXAMINATION: US carotid duplex BI DATE: 10/07/2022 11:05 INDICATION: Carotid stenosis TECHNIQUE: Grayscale, color Doppler, and pulsed Doppler images of the cervical carotid arteries were obtained. The degree of vessel stenosis is placed in one of the following categories: normal, <50%, 5 0-69%, >=70% but less than near-occlusion, near-occlusion, or total occlusion. Note that percent sten osis relative to normal distal artery lumen diameter is indirectly measured from velocity measurement s as described by Yg, et al. Radiology 2003; 229:340-346. Notes: Normal: Peak systolic velocity <125 centimeters/sec and no plaque <50%. Peak systolic velocity <125 ( EDV <40; ICA/CCA PSV ratio <2.0; used these factors only a tandem lesions or low cardiac output or co ntralateral disease) 50-69 %: PSV 125-230 (EDV 40-100; ratio 2-4) >= 70% but less than near occlusion: PSV greater than 230 (EDV > 100; ratio> 4.0) Near Occlusion: PSV that is variable; markedly narrowed lumen Occlusion: Absent flow on color/spectral Doppler and no lumen on castillo scale. COMPARISON: Ultrasound dated 03/13/2021. FINDINGS: RIGHT: The right common carotid artery (CCA) peak systolic velocity (PSV) is 132 cm/s. The right internal ca rotid artery (ICA) PSV is 155 cm/s. The right ICA end-diastolic velocity (EDV) is 30 cm/s. The right ICA/CCA PSV ratio is 1.17. The external carotid artery (ECA) PSV is 153 cm/s. There is antegrade flow in the right vertebral artery. LEFT: The left CCA PSV is 111 cm/s. The left ICA PSV is 95 cm/s. The left ICA EDV is 14 cm/s. The left ICA/ CCA PSV ratio is 0.86. The ECA PSV is 181 cm/s. There is antegrade flow in the left vertebral artery . IMPRESSION: 1. 50-69% stenosis in the right internal carotid artery by sonographic criteria. 2. Less than 50% stenosis in the left internal carotid artery by sonographic criteria. Reviewed, dictated and finalized at location A. IMPRESSION: 1. 50-69% stenosis in the right internal carotid artery by sonographic criteria . 2. Less than 50% stenosis in the left internal carotid artery by sonographic cr iteria.
== END 2022-10-07 10:21 | disposition home or self-care (01) ==
LOC: CHSIMG 10:23
PROVIDERS: PCP Internal Medicine; Visit Provider Internal Medicine
DX: I65.23 Occlusion and stenosis of bilateral carotid arteries (principal)
CPT/HCPCS: 93880

== ENCOUNTER 2023-05-13 10:53 | Outpatient (CLI) | payer MEDICARE, SELFPAY | END 2023-05-13 10:54 | disposition home or self-care (01) | LOC: CHSCARD 10:55 | PROVIDERS: PCP Internal Medicine; Visit Provider Internal Medicine | DX: R06.00 Dyspnea, unspecified (principal); R06.2 Wheezing; R94.2 Abnormal results of pulmonary function studies | CPT/HCPCS: 94060; 94726; 94729; 95012 ==

== ENCOUNTER 2023-10-01 08:54 | Outpatient (CLI) | payer MEDICARE, SELFPAY ==
--- NOTE | ~2023-10-01 | US_ITS ---
EXAMINATION: US carotid duplex BI DATE: 10/01/2023 09:32 INDICATION: Carotid atherosclerosis and stenosis TECHNIQUE: Grayscale, color Doppler, and pulsed Doppler images of the cervical carotid arteries were obtained. The degree of vessel stenosis is placed in one of the following categories: normal, <50%, 5 0-69%, >=70% but less than near-occlusion, near-occlusion, or total occlusion. Note that percent sten osis relative to normal distal artery lumen diameter is indirectly measured from velocity measurement s as described by Yg, et al. Radiology 2003; [id number]:[id number]. COMPARISON: Ultrasound dated 10/07/2022 FINDINGS: RIGHT: The right common carotid artery (CCA) peak systolic velocity (PSV) is 134 cm/s. The right internal ca rotid artery (ICA) PSV is 156 cm/s. The right ICA end-diastolic velocity (EDV) is 33 cm/s. The right ICA/CCA PSV ratio is 1.2. Grayscale and color Doppler images yield an estimate of 50-69% diameter red uction from plaque in the ICA. The external carotid artery (ECA) PSV is 102 cm/s. There is antegrade flow in the right vertebral artery. LEFT: The left CCA PSV is 119 cm/s. The left ICA PSV is 216 cm/s. The left ICA EDV is 48 cm/s. The left ICA /CCA PSV ratio is 1.8. Grayscale and color Doppler images yield an estimate of 50-69% diameter reduct ion from plaque in the ICA. The ECA PSV is 216 cm/s. There is antegrade flow in the left vertebral ar brooke. IMPRESSION: 1. 50-69% stenosis in the right internal carotid artery. 2. 50-69% stenosis in the left internal carotid artery. Reviewed, dictated and finalized at location A.
== END 2023-10-01 08:55 | disposition home or self-care (01) ==
LOC: CHSIMG 08:55
PROVIDERS: PCP Internal Medicine; Visit Provider Internal Medicine
DX: I65.23 Occlusion and stenosis of bilateral carotid arteries (principal)
CPT/HCPCS: 93880

== ENCOUNTER 2024-08-13 07:19 | Outpatient (CLI) | payer MEDICARE, SELFPAY ==
--- NOTE | ~2024-08-13 | US_ITS ---
EXAMINATION: US carotid duplex BI DATE: 08/13/2024 07:53 INDICATION: Bilateral carotid artery stenosis TECHNIQUE: Grayscale, color Doppler, and pulsed Doppler images of the cervical carotid arteries were obtained. The degree of vessel stenosis is placed in one of the following categories: normal, <50%, 5 0-69%, >=70% but less than near-occlusion, near-occlusion, or total occlusion. Note that percent sten osis relative to normal distal artery lumen diameter is indirectly measured from velocity measurement s as described by Yg, et al. Radiology 2003; [id number]. COMPARISON: None. FINDINGS: RIGHT: The right common carotid artery (CCA) peak systolic velocity (PSV) is 153 cm/s. The right internal ca rotid artery (ICA) PSV is 168 cm/s. The right ICA end-diastolic velocity (EDV) is 39 cm/s. The right ICA/CCA PSV ratio is 1.0. Grayscale and color Doppler images yield an estimate of 50-69% diameter red uction from plaque in the ICA. The external carotid artery (ECA) PSV is 181 cm/s. There is antegrade flow in the right vertebral artery. LEFT: The left CCA PSV is 120 cm/s. The left ICA PSV is 200 cm/s. The left ICA EDV is 26 cm/s. The left ICA /CCA PSV ratio is 1.7. Grayscale and color Doppler images yield an estimate of 50-69% diameter reduct ion from plaque in the ICA. The ECA PSV is 212 cm/s. There is antegrade flow in the left vertebral ar brooke. IMPRESSION: 1. 50-69% stenosis in the right internal carotid artery. 2. 50-69% stenosis in the left internal carotid artery. Reviewed, dictated and finalized at location B. [employer]
== END 2024-08-13 07:20 | disposition home or self-care (01) ==
LOC: CHSIMG 07:22
PROVIDERS: PCP Internal Medicine; Visit Provider Internal Medicine
DX: I65.23 Occlusion and stenosis of bilateral carotid arteries (principal)
CPT/HCPCS: 93880